=== PATIENT | female | born 1985 | race Caucasian/White ===

== ENCOUNTER 2016-11-13 17:18 | Emergency (ER) | payer OTHER ==
[2016-11-13 17:49] VITALS: BP 141/89
--- NOTE | 2016-11-13 18:11 | RADIOLOGY REPORT (SQ) ---
EXAM DESCRIPTION: WRIST LEFT 3 VIEWS COMPLETED DATE/TIME: 11/13/2016 5:57 pm REASON FOR STUDY: injury COMPARISON: None. NUMBER OF VIEWS: Three views. TECHNIQUE: AP, lateral, and oblique radiographic images acquired of the left wrist. LIMITATIONS: None. FINDINGS: MINERALIZATION: Normal. BONES: No acute fracture or dislocation. No worrisome bone lesions. Normal alignment. SOFT TISSUES: No soft tissue swelling. No foreign body. OTHER: No other significant finding. IMPRESSION: NO RADIOGRAPHIC EVIDENCE OF ACUTE INJURY. TECHNICAL DOCUMENTATION: JOB ID: [id number] [email or web address]- All Rights Reserved
--- NOTE | 2016-11-13 18:33 | ER Document Report ---
ED General - General Chief Complaint: Wrist Injury Stated Complaint: LEFT WRIST PAIN Time Seen by Provider: 11/13/16 18:27 Mode of Arrival: Ambulatory Information source: Patient Notes: 30-year-old female presents with complaints of left wrist injury. Patient fell on outstretched hand denies any other injuries - HPI Onset: Just prior to arrival Onset/Duration: Sudden Quality of pain: Achy Severity: Mild Pain Level: 1 Associated symptoms: Body/muscle aches Exacerbated by: Movement Relieved by: Denies Similar symptoms previously: No Recently seen / treated by doctor: No Past Medical History - Social History Smoking Status: Never Smoker Cigarette use (# per day): No Chew tobacco use (# tins/day): No Smoking Education Provided: No Family History: Reviewed & Not Pertinent Renal/ Medical History: Denies: Hx Peritoneal Dialysis Review of Systems - Review of Systems Notes: REVIEW OF SYSTEMS: CONSTITUTIONAL : Denies fever, chills, or sweats. Denies recent illness. EENT: Denies eye, ear, throat, or mouth pain or symptoms. Denies nasal or sinus congestion or discharge. Denies throat, tongue, or mouth swelling or difficulty swallowing. CARDIOVASCULAR: Denies chest pain. Denies palpitations or racing or irregular heart beat. Denies ankle edema. RESPIRATORY: Denies cough, cold, or chest congestion. Denies shortness of breath, difficulty breathing, or wheezing. GASTROINTESTINAL: Denies abdominal pain or distention. Denies nausea, vomiting , or diarrhea. Denies blood in vomitus, stools, or per rectum. Denies black, tarry stools. Denies constipation. GENITOURINARY: Denies difficulty urinating, painful urination, burning, frequency, blood in urine, or discharge. FEMALE GENITOURINARY: Denies vaginal bleeding, heavy or abnormal periods, irregular periods. Denies vaginal discharge or odor. MUSCULOSKELETAL: Admits to left wrist pain SKIN: Denies rash, lesions or sores. HEMATOLOGIC : Denies easy bruising or bleeding. LYMPHATIC: Denies swollen, enlarged glands. NEUROLOGICAL: Denies confusion or altered mental status. Denies passing out or loss of consciousness. Denies dizziness or lightheadedness. Denies headache. Denies weakness or paralysis or loss of use of either side. Denies problems with gait or speech. Denies sensory loss, numbness, or tingling. Denies seizures. PSYCHIATRIC: Denies anxiety or stress. Denies depression, suicidal ideation, or homicidal ideation. ALL OTHER SYSTEMS REVIEWED AND NEGATIVE. PHYSICAL EXAMINATION: GENERAL: Well-appearing, well-nourished and in no acute distress. HEAD: Atraumatic, normocephalic. EYES: Pupils equal round and reactive to light, extraocular movements intact, conjunctiva are normal. ENT: Nares patent, oropharynx clear without exudates. Moist mucous membranes. NECK: Normal range of motion, supple without lymphadenopathy LUNGS: Breath sounds clear to auscultation bilaterally and equal. No wheezes rales or rhonchi. HEART: Regular rate and rhythm without murmurs ABDOMEN: Soft, nontender, nondistended abdomen. No guarding, no rebound. No masses appreciated. Female : deferred Musculoskeletal: Limited range of motion of the left wrist secondary to pain NEUROLOGICAL: Cranial nerves grossly intact. Normal speech, normal gait. Normal sensory, motor exams PSYCH: Normal mood, normal affect. SKIN: Warm, Dry, normal turgor, no rashes or lesions noted. Dictation was performed using [employer] voice recognition software Physical Exam - Vital signs Vitals: Temp Pulse Resp BP Pulse Ox 98.1 F 102 H 18 141/89 H 100 11/13/16 17:47 11/13/16 17:47 11/13/16 17:47 11/13/16 17:47 11/13/16 17:47 Course - Re-evaluation Re-evalutation: 11/13/16 18:37 xray was negative, pt to be placed in a cockup splint velcro for comfort with ortho follow up After performing a Medical Screening Examination, I estimate there is LOW risk for INTRACRANIAL HEMORRHAGE, UNSTABLE SPINE FRACTURE, CENTRAL CORD SYNDROME, CAUDA EQUINA, THORACIC AORTIC DISSECTION, PNEUMOTHORAX, PERFORATED BOWEL, RUPTURED ABDOMINAL AORTIC ANEURYSM, ACUTE TENDON RUPTURE, COMPARTMENT SYNDROME, or OPEN FRACTURE, thus I consider the discharge disposition reasonable. Also, there is no evidence or peritonitis, sepsis, or toxicity. I have reevaluated this patient multiple times and no significant life threatening changes are noted. The patient and I have discussed the diagnosis and risks, and we agree with discharging home to follow-up with their primary doctor with the understanding that symptoms and presentations can change. We also discussed returning to the Emergency Department immediately if new or worsening symptoms occur. We have discussed the symptoms which are most concerning (e.g., bloody stool, fever, changing or worsening pain, vomiting) that necessitate immediate return. - Vital Signs Vital signs: Temp Pulse Resp BP Pulse Ox 98.1 F 102 H 18 141/89 H 100 11/13/16 17:47 11/13/16 17:47 11/13/16 17:47 11/13/16 17:47 11/13/16 17:47 - Diagnostic Test Radiology reviewed: Image reviewed, Reports reviewed - no acute abnormaltiy Procedures - Immobilization Left Wrist Time completed: 18:38 Pre-Proc Neuro Vasc Exam: Normal Immobilizer type: Cock-up Performed by: PCT Post-Proc Neuro Vasc Exam: Normal Alignment checked and good: Yes Discharge - Discharge Clinical Impression: Wrist injury Qualifiers: Encounter type: initial encounter Laterality: left Qualified Code(s): S69.92XA - Unspecified injury of left wrist, hand and finger(s), initial encounter Condition: Stable Disposition: HOME, SELF-CARE Instructions: Wrist Sprain ([facility]) Prescriptions: Hydrocodone/Acetaminophen [Thurston 5-325 mg Tablet] 1 tab PO Q6 #10 tablet Referrals: RUSS STYLES MD [ACTIVE STAFF] - Follow up tomorrow
== END 2016-11-13 18:38 | disposition home or self-care (01) ==
LOC: ER 17:18
DX: S69.92XA Unspecified injury of left wrist, hand and finger(s), initial encounter (principal); M79.1 Myalgia; W19.XXXA Unspecified fall, initial encounter
CPT/HCPCS: 99283; 73110; L3908

== ENCOUNTER 2017-03-22 05:57 | Emergency (ER) | payer OTHER ==
--- NOTE | 2017-03-22 06:19 | ER Document Report ---
ED General - General Chief Complaint: Psych Problem Stated Complaint: POSSIBLE OVERDOSE Time Seen by Provider: 03/22/17 06:07 Mode of Arrival: Medic Information source: Patient Notes: 31-year-old female history of depression presents with concerns for alcohol abuse and taking Klonopin. Patient upon arrival noted to be tachycardic, patient appears intoxicated. Patient is awake when asked why she did this she said "because" - HPI Onset: Just prior to arrival Onset/Duration: Sudden Quality of pain: No pain Severity: Mild Pain Level: Denies Associated symptoms: Other Exacerbated by: Denies Relieved by: Denies Similar symptoms previously: Yes Recently seen / treated by doctor: Yes - Related Data Allergies/Adverse Reactions: No Known Allergies Allergy (Unverified 03/22/17 06:27) Past Medical History - Social History Smoking Status: Never Smoker Cigarette use (# per day): No Chew tobacco use (# tins/day): No Smoking Education Provided: No Frequency of alcohol use: Heavy Drug Abuse: Other Family History: Reviewed & Not Pertinent Renal/ Medical History: Denies: Hx Peritoneal Dialysis Psychiatric Medical History: Reports: Hx Depression Past Surgical History: Reports: Hx Abdominal Surgery - exploratory laparoscopy, Hx Appendectomy, Hx Tonsillectomy - Immunizations Hx Diphtheria, Pertussis, Tetanus Vaccination: Yes Review of Systems - Review of Systems Notes: REVIEW OF SYSTEMS: CONSTITUTIONAL : Denies fever, chills, or sweats. Denies recent illness. EENT: Denies eye, ear, throat, or mouth pain or symptoms. Denies nasal or sinus congestion or discharge. Denies throat, tongue, or mouth swelling or difficulty swallowing. CARDIOVASCULAR: Denies chest pain. Denies palpitations or racing or irregular heart beat. Denies ankle edema. RESPIRATORY: Denies cough, cold, or chest congestion. Denies shortness of breath, difficulty breathing, or wheezing. GASTROINTESTINAL: Denies abdominal pain or distention. Denies nausea, vomiting , or diarrhea. Denies blood in vomitus, stools, or per rectum. Denies black, tarry stools. Denies constipation. GENITOURINARY: Denies difficulty urinating, painful urination, burning, frequency, blood in urine, or discharge. FEMALE GENITOURINARY: Denies vaginal bleeding, heavy or abnormal periods, irregular periods. Denies vaginal discharge or odor. MUSCULOSKELETAL: Denies back or neck pain or stiffness. Denies joint pain or swelling. SKIN: Denies rash, lesions or sores. HEMATOLOGIC : Denies easy bruising or bleeding. LYMPHATIC: Denies swollen, enlarged glands. NEUROLOGICAL: Denies confusion or altered mental status. Denies passing out or loss of consciousness. Denies dizziness or lightheadedness. Denies headache. Denies weakness or paralysis or loss of use of either side. Denies problems with gait or speech. Denies sensory loss, numbness, or tingling. Denies seizures. PSYCHIATRIC: Anxious depressed ALL OTHER SYSTEMS REVIEWED AND NEGATIVE. PHYSICAL EXAMINATION: GENERAL: Well-appearing, well-nourished and in no acute distress. HEAD: Atraumatic, normocephalic. EYES: Pupils equal round and reactive to light, extraocular movements intact, conjunctiva are normal. ENT: Nares patent, oropharynx clear without exudates. Moist mucous membranes. NECK: Normal range of motion, supple without lymphadenopathy LUNGS: Breath sounds clear to auscultation bilaterally and equal. No wheezes rales or rhonchi. HEART: Tachycardic ABDOMEN: Soft, nontender, nondistended abdomen. No guarding, no rebound. No masses appreciated. Female : deferred Musculoskeletal: Normal range of motion, no pitting or edema. No cyanosis. NEUROLOGICAL: Cranial nerves grossly intact. Normal speech, normal gait. Normal sensory, motor exams PSYCH: Intermittently tearful SKIN: Warm, Dry, normal turgor, no rashes or lesions noted. Dictation was performed using [employer] voice recognition software Physical Exam - Vital signs Vitals: Temp Resp BP Pulse Ox 98.7 F 20 138/97 H 99 03/22/17 06:01 03/22/17 06:01 03/22/17 06:01 03/22/17 06:01 Course - Re-evaluation Re-evalutation: 03/22/17 06:26 Patient's physical examination was quite benign except for tachycardia, she is obviously intoxicated, I will wait until she is sober to determine her mental and psychological status 03/22/17 15:46 Patient's heart rate improved with IV fluids, she has been medically cleared but given her presentation I do believe it is appropriate to transfer her to the [facility] for inpatient psychiatric assistance - Vital Signs Vital signs: Temp Pulse Resp BP Pulse Ox 98.7 F 155 H 13 102/68 97 03/22/17 06:01 03/22/17 06:33 03/22/17 09:01 03/22/17 09:01 03/22/17 09:01 - Laboratory Result Diagrams: 03/22/17 06:05 03/22/17 06:05 Laboratory results interpreted by me: 03/22/17 06:05 Sodium 151.7 H Chloride 113 H Carbon Dioxide 21 L Glucose 112 H Total Bilirubin 0.1 L Salicylates < 1.0 L Acetaminophen < 10 L - EKG Interpretation by Me EKG shows normal: Sinus rhythm, Holcomb, Intervals, QRS Complexes Discharge - Discharge Clinical Impression: Tachycardia Depression Qualifiers: Depression Type: unspecified Qualified Code(s): F32.9 - Major depressive disorder, single episode, unspecified Condition: Stable Disposition: [facility]
[2017-03-22 06:23] LABS: ABSOLUTE BASOPHILS # (AUTO) 0.1 10^3/uL (0.0-0.2); ABSOLUTE EOSINOPHILS # (AUTO) 0.2 10^3/uL (0.0-0.6); ABSOLUTE LYMPHOCYTES (AUTO) 2.3 10^3/uL (0.5-4.7); ABSOLUTE MONOCYTES (AUTO) 0.7 10^3/uL (0.1-1.4); ABSOLUTE NEUT (AUTO) 4.3 10^3/uL (1.7-8.2); BASOPHILS % (AUTO) 0.7 % (0-2); EOSINOPHILS % (AUTO) 3.2 % (0-6); HEMATOCRIT 41.2 % (36.0-47.0); LYMPHOCYTES % (AUTO) 30.8 % (13-45); MEAN CORPUSCULAR HEMOGLOBIN 29.1 pg (27.0-33.4); MEAN CORPUSCULAR VOLUME 86 fl (80-97); MONOCYTES % (AUTO) 8.6 % (3-13); PLATELET COUNT 284 10^3/uL (150-450); RED BLOOD COUNT 4.82 10^6/uL (3.72-5.28); RED CELL DISTRIBUTION WIDTH 13.2 % (11.5-14.0); SEGMENTED NEUTROPHILS % (AUTO) 56.7 % (42-78); TOTAL CELLS COUNTED % (AUTO) 100 %; WHITE BLOOD COUNT 7.5 10^3/uL (4.0-10.5)
[2017-03-22 06:33] LABS: APPEARANCE,URINE CLEAR; BILIRUBIN,URINE NEGATIVE (NEGATIVE); COLOR,URINE COLORLESS; GLUCOSE, URINE NEGATIVE (NEGATIVE); KETONES,URINE NEGATIVE (NEGATIVE); LEUKOCYTE ESTERASE,URINE NEGATIVE (NEGATIVE); NITRITE,URINE NEGATIVE (NEGATIVE); PROTEIN,URINE NEGATIVE (NEGATIVE); URINE SPECIFIC GRAVITY 1.002; UROBILINOGEN,URINE NEGATIVE mg/dL (<2.0)
[2017-03-22] MEDS ORDERED: NORMAL SALINE 1000 ML 1,000 ML IV PRN (06:34)
[2017-03-22 06:42] LABS: ALANINE AMINOTRANSFERASE 24 U/L (9-52); ALBUMIN 4.7 g/dL (3.5-5.0); ALCOHOL 227 mg/dL (NONE DETECTED); ALKALINE PHOSPHATASE 122 U/L (38-126); ANION GAP 18 (5-19); ASPARTATE AMINO TRANSFERASE 15 U/L (14-36); BILIRUBIN,DIRECT 0.1 mg/dL (0.0-0.4); BILIRUBIN,TOTAL 0.1 mg/dL (0.2-1.3); BLOOD UREA NITROGEN 11 mg/dL (7-20); CALCIUM 9.8 mg/dL (8.4-10.2); CARBON DIOXIDE 21 mmol/L (22-30); CHLORIDE 113 mmol/L (98-107); GLUCOSE 112 mg/dL (75-110); POTASSIUM 4.2 mmol/L (3.6-5.0); SODIUM 151.7 mmol/L (137-145); TOTAL PROTEIN 7.6 g/dL (6.3-8.2)
[2017-03-22 06:44] LABS: URINE AMPHETAMINES SCREEN NEGATIVE; URINE BARBITURATES SCREEN NEGATIVE; URINE BENZODIAZEPINES SCREEN NEGATIVE; URINE COCAINE SCREEN NEGATIVE; URINE MARIJUANA (THC) SCREEN NEGATIVE; URINE METHADONE SCREEN NEGATIVE; URINE PHENCYCLIDINE SCREEN NEGATIVE
[2017-03-22 06:48] LABS: ACETAMINOPHEN < 10 ug/mL (10-30); SALICYLATE < 1.0 mg/dL (2.0-20.0)
[2017-03-22 07:11] LABS: CREATINE KINASE MB < 0.22 ng/mL (<4.55); TROPONIN I < 0.012 ng/mL
--- NOTE | 2017-03-22 08:59 | EKG REPORT ---
SEVERITY:- BORDERLINE ECG - SINUS TACHYCARDIA BORDERLINE T ABNORMALITIES, INFERIOR LEADS : Confirmed by: Alex Li 22-Mar-2017 08:58:17
--- NOTE | 2017-03-22 10:18 | PSYCHOLOGICAL NOTE ---
Psych Note - Psych Note Psych Note: Reason for Consult: Overdose (ETOH/Klonopin) Consents given: Patience, previous landlord/friend, Patient is a 31 year old female who presented to the Emergency Department via EMS after reportedly drinking two bottles of wine, multiple beers and taking 5 1 /2 Klonopin. Patient stated she called the suicide hotline because she wanted to commit suicide and the suicide hotline called EMS. She stated she felt like they made her come into the hospital versus it being her choice to be here. Patient reported she had a "bad night. I was tired." Patient reported, "I drank and I took some pills. I tried to commit suicide. Now I'm better." Patient reported she recently had a "falling out: with her mother who is a "psycho bitch." Patient stated she was a "psycho bitch too, like mother like daughter." Patient stated she does not know if her mother has any mental health diagnoses but stated she currently has breast cancer. Patient reported her biological father was diagnosed with Bipolar Disorder but she does not have contact with him. Patient reported she goes to the [facility] for therapy, physical health complaints and medication management. Patient stated she has been diagnosed with depression, anxiety and chronic low back pain. Her medications include Gabapentin, Klonopin and Naproxen. Patient reported being previously prescribed Prozac but no current medications to address depression. Patient reported she feels like she does not suffer with depression anymore, stated she has not experienced any depressive episodes since her son was approximately 6 months old, he is 2 years old now. Patient stated her son's biological father is not in the child's life, does not contribute child support and is not listed on his certificate. Patient stated her "biggest issue is anxiety." Patient reported her son was home sleeping when she started drinking and took the pills. She stated she called her previous landlord/friend , Shilpi, to come get her son when she started feeling suicidal but after she had already been drinking. Patient stated her son is "all that matters." She reported that "usually being with my kid is all that matters, last night it just got away from me." Patient reported she was in the [employer] for 5 1/2 years and got out on 04/03/2012. 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 Patient reported she came back [facility] to have an . She stated the was botched and they did not clear all of the tissue from her uterus so she had to have multiple procedures to correct the initial which caused extensive scar tissue to her uterus. She reported following the surgeries she attempted suicide and was psychiatrically hospitalized in [facility]. Patient reported she has not attempted suicide since that time. Patient did report she had "an old [employer] caron" commit suicide in September 2016. Patient reported she is working on her Bachelor's Degree in [employer] Education through [facility] [employer] and it is being paid for by her [employer]. Patient stated her current class is more extensive and harder than previous classes but she is still maintaining her grades. She stated the class was more stressful than past classes. She indicated she still has "a long while" until she completes her degree but is not concerned because she is utilizing her [employer] Bill. Patient denied any consistent drug or alcohol use. She stated her alcohol use is "slim to none" and denied taking any medications not prescribed to her. It should be noted the patient's alcohol serum level upon admission to the Emergency Department was 222. Patient made multiple statements about hospital staff not "giving a fuck" because they had not been in to check on her or the monitor in her room. Collateral information was obtained from Deputy Longoria who responded to the patient's home. He reported seeing two empty wine bottles and multiple empty beer cans on the patient's counter when he entered the home. He reported the patient told him he should "take my pills," referring to her Klonopin, when he was looking for her identification. When he asked her why he should take them she told him it was because she was going to take them. Murphy indicated he has not had prior interaction with the patient but he was also aware she had recently moved to her current residence from [place] so she would not have been in his patrol area. The deputy reported the patient collapsed without force on the front porch and he assisted her into a chair. He stated when she was in the chair he observed her eyelids fluttering and her eyes rolling. The deputy stated the patient never told him why she was attempting to commit suicide or what stressors she was currently experiencing. Verbal consent was given to speak to Patience, the patient's previous landlord/ friend. Patience reported she has known the patient for roughly 2.5 years. Patience reported she hasn't seen the patient in the last 2 weeks and in the last year they only see each other "every once in a while." They communicate mostly via Facebook. The patient's son is with the landlord at this time. When asked questions regarding safety and concern for her son, Patience said, "I can't comment on it because I hasn't seen her in a while." Patience reported when they used to see each other every day she never had concerns for the patient's son and she never saw the patient under the influence while watching her son. Patience reported she does not know about an increase in the patient's drug or alcohol use. Patience reported the patient has a brother and a [id number] in [place] and she has the contact numbers for those family members. [facility] was contacted and a report was made to Julia Juarez regarding the minor child being in the home during the reported overdose. When the material requisitioner discussed involuntary commitment and placement for psychiatric stabilization the patient became tearful and angry and stated "that is not going to happen." This material requisitioner attempted to explain the reasons and needs for inpatient services and having to make a CPS report regarding her son. This material requisitioner asked about family in the area since the landlord/friend had reported that the patient has a brother and sister in law in [place]. The patient stated she did not want her son to go to those family members during her inpatient stay. This material requisitioner asked if there were safety issues with the son staying with her brother and sister in law and she stated "no, I just don't want him to go there." Patient then asked to speak to the doctor about the treatment plan. This material requisitioner informed the doctor of the patient's request to speak to him. Patient was alert and oriented to person, place, time and circumstance. Mood was guarded and hostile with congruent affect. Patient denied suicidal/ homicidal ideation, intent or plan. When asked what the difference was in the last few hours from her attempting to commit suicide and now the patient stated she "was better." Patient was unable to identify any changes in support, decreased stressors or increased coping methods. She did not appear to be responding to internal stimuli as evidenced by appropriate eye contact, maintaining conversation and staying on topic. No delusions or psychosis noted. Thought processes were organized and linear. Conversational speech was within normal limits for rate, tone and prosody. Intellectual abilities were estimated in the average range. Attention and concentration were fair. Insight, judgment and impulse control were poor as evidenced by the patient minimizing suicidal behaviors and precipitating events. 1. 300.00 (F41.9) Unspecified Anxiety Disorder, by patient report 2. 311 (F32.9) Unspecified Depressive Disorder, by patient report Impression/Plan: Recommend IVC. Patient is not psychiatrically clear. She meets [place] G.S 122C IVC criteria as evidenced by minimization of suicidal behaviors, unwillingness to identify behavioral triggers, and guarded interaction with evaluators. She evidences little insight, poor impulse control and poor judgment. She is considered a danger to herself and others at this time. Placement at an inpatient hospitalization will be sought. Consulted with Dr. Meza regarding the care and management of this patient. ED physician in agreement with recommendation and disposition.
[2017-03-22] MEDS: FLUOXETINE HCL 20 MG CAPSULE PO SCH (10:19)
[2017-03-22] MEDS: OLANZAPINE 2.5 MG TABLET PO SCH ×2 (10:19→18:07)
[2017-03-23] MEDS: OLANZAPINE 2.5 MG TABLET PO SCH ×2 (09:21→19:45)
[2017-03-23] MEDS: FLUOXETINE HCL 20 MG CAPSULE PO SCH (09:22)
--- NOTE | 2017-03-23 10:41 | ER Document Report ---
Doctor's Note Notes: 03/23/17 10:39 This is a 31-year-old female brought in with suicidal ideations. She has had 2 suicide attempts in the past. She is hemodynamically stable in no acute distress at this time and wanting to go home. There is concern about her safety given her history. For this reason, the plan will be to maintain involuntary commitment for inpatient psychiatric care. I have discussed the case with the psychology team who have evaluated the patient.
[2017-03-24 07:23] VITALS: BP 108/64
--- NOTE | 2017-03-24 07:41 | PSYCHOLOGICAL NOTE ---
Psych Note - Psych Note Psych Note: Communication Technician contacted by POD 4 nurse. Patient received a call from her sister-in- law stating she ([id number]) would not be caring for patient's son while she is in the hospital. Communication Technician checked in with patient. Patient was visibly upset and tearful. She reported her [id number] called her and told her she didn't want CPS involved with their family, even if it was peripherally through her son. Patient stated the [id number] refused to take her son while she was in the hospital and she was distraught. Patient asked if she could complete a temporary medical POA for the lady, Patience, who is currently watching her son. This cylinder dyer asked if she (Patience) had agreed to continue to care for the patient's son for the entirety of the patient's inpatient stay. Patient stated she had called and asked her right after her [id number] refused and said she would keep the child. Provided the temporary POA to the patient and had it notarized by the caseworker. Made a copy of the notarized POA and put both copies on the patient's chart. Informed the patient and POD 4 staff that the rough and trueing machine operator (Patience) would need to pickling tank operator the original of the POA. Informed nursing staff the copy needed to be kept as part of the patient's chart. Patient expressed gratitude and was very thankful for this cylinder dyer's assistance. Patient appears more willing and interested in inpatient treatment at this time.
--- NOTE | 2017-03-24 08:26 | PSYCHOLOGICAL NOTE ---
Psych Note - Psych Note Psych Note: Reason for Consult: Overdose (ETOH/Klonopin) Consents given: Patience, previous landlord/friend, Chart review/check in: Per [facility] staff, patient rested comfortably throughout the night. Patient lying in bed, awake, when this shot dropper entered the room. Patient's breakfast at bedside, uneaten. Patient stated she was doing "okay." Informed patient we are waiting to hear from [facility] about placement. Patient appeared calm and interacted appropriately. Patient was alert and oriented to person, place, time and circumstance. Mood was subdued with congruent affect. Patient denied suicidal/homicidal ideation, intent or plan. Patient did not appear to be responding to internal stimuli as evidenced by appropriate eye contact, maintaining conversation and staying on topic. No delusions or psychosis noted. Thought processes were organized and linear. Conversational speech was within normal limits for rate, tone and prosody. Intellectual abilities were estimated in the average range. Attention and concentration were fair. Insight, judgment and impulse control continue to be poor. Patient still somewhat guarded in what she is willing to discuss and continues to need stabilization through inpatient treatment. 1. 300.00 (F41.9) Unspecified Anxiety Disorder, by patient report 2. 311 (F32.9) Unspecified Depressive Disorder, by patient report Impression/Plan: Recommend continue IVC. Patient is not psychiatrically clear. She meets [place] G.S 122C IVC criteria as evidenced by minimization of suicidal behaviors, unwillingness to identify behavioral triggers, and guarded interaction with evaluators. She evidences little insight, poor impulse control and poor judgment. She is considered a danger to herself and others at this time. Placement at an inpatient hospitalization is being sought. As patient has VA benefits her inpatient packet has been sent to the [facility] [place]. power manager will be following up today to identify any open beds and ensure packet is being reviewed by the hospitals. Consulted with Dr. Meza regarding the care and management of this patient. ED physician in agreement with recommendation and disposition.
[2017-03-24] MEDS: FLUOXETINE HCL 20 MG CAPSULE PO SCH (09:55)
[2017-03-24] MEDS: OLANZAPINE 2.5 MG TABLET PO SCH (09:55)
--- NOTE | 2017-03-24 10:01 | ER Document Report ---
Doctor's Note Notes: 03/24/17 10:05 Patient continues to be tearful and suicidal, willing to go to inpatient treatment as behavioral health thinks this is necessary. [facility] has been contacted and we are waiting a phone call back for placement. Patient does have some redness and swelling in her left antecubital fossa where her IV was placed. This appears to be superficial thrombophlebitis from the IV. Heating pad will be placed. Patient also complains of her chronic back pain which is unchanged from baseline. Patient will be given acetaminophen.
[2017-03-24] MEDS ORDERED: ACETAMINOPHEN 325 MG TABLET PO ONE (10:07)
== END 2017-03-24 13:08 ==
LOC: ER 05:57
DX: F32.9 Major depressive disorder, single episode, unspecified (principal); R00.0 Tachycardia, unspecified; Z79.899 Other long term (current) drug therapy
CPT/HCPCS: 93005; 99285; 36415; 82553; 80307 ×4; 82550; 83735; 84703; 85025; 80053; 81001; 84484; 93010; J3490 ×3

== ENCOUNTER 2017-12-12 15:13 | Emergency (ER) | payer OTHER ==
[2017-12-12 15:22] VITALS: BP 150/97
[2017-12-12] MEDS ORDERED: OXYCODONE-ACETAMINOPHEN 5-325 MG TABLET PO ONE (16:46)
[2017-12-12] MEDS ORDERED: DEXAMETHASONE SOD PHOS INJ 10 MG/1 ML VIAL IM ONE (16:46)
[2017-12-12] MEDS ORDERED: LIDOCAINE 5% (700 MG) TRANSDERMAL ADH..PATCH TP ONE (16:46)
[2017-12-12] MEDS ORDERED: BACLOFEN 20 MG TABLET PO ONE (16:47)
[2017-12-12] MEDS ORDERED: KETOROLAC TROMETHAMINE 60 MG/2 ML SDV IM ONE (16:47)
--- NOTE | 2017-12-12 17:03 | ER Document Report ---
HPI - HPI Pain Level: 4 Notes: Patient is a 32-year-old female who presents with chief complaint of low back pain. Patient reports she has a history of chronic back pain. She states that a few months ago her son broke his leg, he is 2 years old and she has been carrying him all over the place. She reports her back pain has gotten worse she is having numbness and tingling going down into the left leg. Patient reports she has had a previous MRI and she has a bulging disc at L5-S1. States she is in pain management and is seen by [facility]. Patient denies loss of any bowel or bladder, denies any saddle anesthesia. Urinating without any difficulty. Denies any fevers. - CONSTITUTIONAL Constitutional: DENIES: Fever, Chills - EENT EENT: DENIES: Sore Throat, Ear Pain, Eye problems - NEURO Neurology: DENIES: Headache, Weakness, Vision blurred, Dizzinesss / Vertigo - CARDIOVASCULAR Cardiovascular: DENIES: Chest pain - RESPIRATORY Respiratory: DENIES: Trouble Breathing, Coughing - GASTROINTESTINAL Gastrointestinal: DENIES: Abdominal Pain, Black / Bloody Stools - URINARY Urinary: DENIES: Dysuria, Urgency, Frequency - MUSCULOSKELETAL Musculoskeletal: DENIES: Extremity pain Past Medical History - General Information source: Patient - Social History Smoking Status: Current Some Day Smoker Chew tobacco use (# tins/day): No Frequency of alcohol use: Occasional Drug Abuse: None Family History: Reviewed & Not Pertinent Patient has suicidal ideation: No Patient has homicidal ideation: No Renal/ Medical History: Denies: Hx Peritoneal Dialysis Psychiatric Medical History: Reports: Hx Depression Past Surgical History: Reports: Hx Abdominal Surgery - exploratory laparoscopy, Hx Appendectomy, Hx Tonsillectomy - Immunizations Hx Diphtheria, Pertussis, Tetanus Vaccination: Yes Vertical Provider Document - CONSTITUTIONAL Notes: PHYSICAL EXAMINATION: GENERAL: Well-appearing, well-nourished and in no acute distress. HEAD: Atraumatic, normocephalic. EYES: Pupils equal round extraocular movements intact, conjunctiva are normal. ENT: Nares patent NECK: Normal range of motion LUNGS: No respiratory distress Musculoskeletal: Normal range of motion, tenderness to palpation to left paraspinous area, left lumbar spine. Normal sensation to both lower extremities. Normal pulses, cap refill less than 3 seconds. NEUROLOGICAL: Normal speech, normal gait. PSYCH: Normal mood, normal affect. SKIN: Warm, Dry, normal turgor, no rashes or lesions noted. - INFECTION CONTROL TRAVEL OUTSIDE OF THE [place] IN LAST 30 DAYS: No Course - Re-evaluation Re-evalutation: Patient with likely exacerbation of chronic low back pain. No imaging indicated at this time. Patient given IM Decadron, IM Toradol, Lidoderm patch, p.o. baclofen and p.o. oxycodone x1. Patient will be discharged home in stable condition. Highly encouraged patient to follow-up with her primary care provider next week for follow-up. Encouraged patient not to lift more than 5 pounds. - Vital Signs Vital signs: Temp Pulse Resp BP Pulse Ox 98.3 F 96 150/97 H 98 12/12/17 15:20 12/12/17 15:20 12/12/17 15:20 12/12/17 15:20 Discharge - Discharge Clinical Impression: Low back pain Qualifiers: Chronicity: acute Back pain laterality: left Sciatica presence: with sciatica Sciatica laterality: sciatica of left side Qualified Code(s): M54.42 - Lumbago with sciatica, left side Condition: Stable Disposition: HOME, SELF-CARE Additional Instructions: LOW BACK PAIN: Three out of every four people will have an episode of disabling back pain during their lifetime. Most commonly the pain is due to straining of the muscles and ligaments in the low back. Usual treatment includes: (1) Rest on a firm surface. Avoid lying on your stomach. (2) Ice pack the painful area. After a few days, gentle heat may be used intermittently to relax the area, or ice packs can be continued. (3) Medication may be needed -- muscle relaxers and antiinflammatory medicines are commonly used. (4) As the back improves, exercises are prescribed to strengthen the back and abdominal muscles. Your doctor will advise you on the proper care for your back at each stage in your recovery. You may be better in a few days -- or healing may take several weeks. If new symptoms of a "herniated disc" (radiation of pain, numbness, or tingling down the back of the leg or weakness in the leg) occur, you should be re-examined. Further testing may be necessary. MUSCLE RELAXERS: Muscle relaxing medications are usually prescribed for acute muscle spasm or injury to the neck and back. They are often combined with antiinflammatory pain medication for increased relief. You may stop the muscle relaxer when the pain and stiffness have improved. Start the medication again if spasms recur. Muscle relaxers may cause drowsiness, especially with the first dose. Do not operate machinery or drive while under the effects of the medication. Most muscle relaxers last up to 24 hours. Do not combine the medication with alcohol. ICE PACKS: Apply ice packs frequently against the painful area. Many different schedules are recommended, such as "20 minutes on, 20 minutes off" or "one hour ice, two hours rest." If you need to work, you may need to go longer between ice treatments. You should plan to have the area ice packed AT LEAST one fourth of the time. The ice should be applied over the wrap, tape, or splint, or over a layer of cloth -- not directly against the skin. Some ice bags have a built-in cloth and can be put directly on the skin. WARM PACKS: After approximately two days, apply gentle heat (such as a heating pad or hot water bottle) for about 20 to 30 minutes about every two hours -- at least four times daily. Warmth and elevation will help you make a more rapid recovery , and will ease the pain considerably. Do not use HOT heat, and never apply heat for longer than 30 minutes. The continuous heat can invisibly damage skin and muscles -- even when no burn is seen on the surface. Damaged muscles can make you MORE sore. FOLLOW-UP CARE: If you have been referred to a physician for follow-up care, call the physician s office for an appointment as you were instructed or within the next two days. If you experience worsening or a significant change in your symptoms, notify the physician immediately or return to the Emergency Department at any time for re-evaluation. Please take medications as prescribed. Apply the Lidoderm patch to whatever area is of most intensity of pain. Use the muscle relaxer as prescribed. Take ibuprofen 600 mg every 6 hours this will help with not only the pain but also the inflammation. As we discussed please follow-up with your primary care provider at [facility], they may want to see you perhaps to do another MRI to make sure that you have not worsened the bulging disc that you were already diagnosed with. No lifting greater than 5 pounds for the next week. Return to the emergency department if you defecate on herself, you are unable to urinate at all or you develop a fever. Prescriptions: Baclofen [Baclofen 10 mg Tablet] 10 mg PO TID #15 tablet Lidocaine [Lidoderm 5% (700 mg) Transdermal Patch] 1 patch TP DAILY #30 adh..patch
== END 2017-12-12 17:11 | disposition home or self-care (01) ==
LOC: ER 15:13
DX: M54.42 Lumbago with sciatica, left side (principal); R20.0 Anesthesia of skin; R20.2 Paresthesia of skin; F17.200 Nicotine dependence, unspecified, uncomplicated
CPT/HCPCS: 99283; 96372; J1885; J3490; J1100

== ENCOUNTER 2017-12-14 16:36 | Emergency (ER) | payer OTHER ==
[2017-12-14] MEDS ORDERED: KETOROLAC TROMETHAMINE 60 MG/2 ML SDV IM ONE (17:21)
[2017-12-14] MEDS ORDERED: FENTANYL CITRATE INJ/PF 100 MCG/2 ML AMPUL IM ONE (17:23)
--- NOTE | 2017-12-14 17:27 | ER Document Report ---
ED Medical Screen (RME) - General Chief Complaint: Low Back Pain Stated Complaint: BACK PAIN Time Seen by Provider: 12/14/17 17:16 Mode of Arrival: Wheelchair Notes: 32-year-old female with a history of chronic back pain presents emergency department complaints of worsening low back pain. Patient states that her son broke his leg a few months ago and she has been carrying him all over the place. She states that this is aggravating her back. She states that it is worsening. She complains of a sharp and stabbing sensation in the left lower back that radiates down the left lower extremity. Patient states that she has had an MRI in the past that showed disc bulging at L5/S1. She is seen in pain management by the [place] [facility]. Patient is currently on gabapentin and naproxen. Patient was seen in the emergency department 2 days ago for worsening lower back pain. She was prescribed a Lidoderm patch, baclofen. Patient states that she [facility] the [facility] but it takes a few days for them to approve them and for her to start using them. Patient states that she is having some difficulty urinating now. Patient is able to ambulate despite the pain. She denies any saddle anesthesia. I have greeted and performed a rapid initial assessment of this patient. A comprehensive ED assessment and evaluation of the patient, analysis of test results and completion of the medical decision making process will be conducted by additional ED providers. PHYSICAL EXAMINATION: GENERAL: Well-appearing, well-nourished and in no acute distress. HEAD: Atraumatic, normocephalic. EYES: Pupils equal round extraocular movements intact, conjunctiva are normal. ENT: Nares patent NECK: Normal range of motion LUNGS: No respiratory distress Musculoskeletal: Normal range of motion NEUROLOGICAL: Normal speech, limping gait. PSYCH: Normal mood, normal affect. SKIN: Warm, Dry, normal turgor, no rashes or lesions noted. TRAVEL OUTSIDE OF THE U.S[place] IN LAST 30 DAYS: No - Related Data Allergies/Adverse Reactions: No Known Allergies Allergy (Unverified 03/22/17 06:27) Past Medical History - Social History Frequency of alcohol use: None Drug Abuse: None Renal/ Medical History: Denies: Hx Peritoneal Dialysis Psychiatric Medical History: Reports: Hx Depression - anxiety Past Surgical History: Reports: Hx Abdominal Surgery - exploratory laparoscopy, Hx Appendectomy, Hx Tonsillectomy - Immunizations Hx Diphtheria, Pertussis, Tetanus Vaccination: Yes History of Influenza Vaccine for 11/2016 - 04/2017 Season: Yes Influenza Administration Date for 11/2016 - 04/2017 Season: 11/09/16 Physical Exam - Vital signs Vitals: Temp Pulse Resp BP Pulse Ox 98.8 F 111 H 18 152/111 H 99 12/14/17 16:41 12/14/17 16:41 12/14/17 16:41 12/14/17 16:41 12/14/17 16:41 Course - Vital Signs Vital signs: Temp Pulse Resp BP Pulse Ox 98.8 F 111 H 18 152/111 H 99 12/14/17 16:41 12/14/17 16:41 12/14/17 16:41 12/14/17 16:41 12/14/17 16:41
[2017-12-14 19:10] LABS: APPEARANCE,URINE CLEAR; BILIRUBIN,URINE NEGATIVE (NEGATIVE); COLOR,URINE STRAW; GLUCOSE, URINE NEGATIVE (NEGATIVE); KETONES,URINE TRACE mg/dL (NEGATIVE); LEUKOCYTE ESTERASE,URINE NEGATIVE (NEGATIVE); NITRITE,URINE NEGATIVE (NEGATIVE); PROTEIN,URINE NEGATIVE (NEGATIVE); URINE SPECIFIC GRAVITY 1.014; UROBILINOGEN,URINE NEGATIVE mg/dL (<2.0)
[2017-12-14] MEDS ORDERED: PREDNISONE 20 MG TABLET PO ONE (20:01)
[2017-12-14] MEDS ORDERED: TRAMADOL HCL 50 MG TABLET PO ONE (20:01)
--- NOTE | 2017-12-14 20:08 | ER Document Report ---
ED General - General Chief Complaint: Low Back Pain Stated Complaint: BACK PAIN Time Seen by Provider: 12/14/17 17:16 Mode of Arrival: Wheelchair TRAVEL OUTSIDE OF THE [place].S[place] IN LAST 30 DAYS: No - HPI Patient complains to provider of: Left sided back pain Notes: Patient was seen in the triage area by triage provider note is provided below 32-year-old female with a history of chronic back pain presents emergency department complaints of worsening low back pain. Patient states that her son broke his leg a few months ago and she has been carrying him all over the place. She states that this is aggravating her back. She states that it is worsening. She complains of a sharp and stabbing sensation in the left lower back that radiates down the left lower extremity. Patient states that she has had an MRI in the past that showed disc bulging at L5/S1. She is seen in pain management by the [facility]. Patient is currently on gabapentin and naproxen. Patient was seen in the emergency department 2 days ago for worsening lower back pain. She was prescribed a Lidoderm patch, baclofen. Patient states that she submitted the prescriptions for [facility] but it takes a few days for them to approve them and for her to start using them. Patient states that she is having some difficulty urinating now. Patient is able to ambulate despite the pain. She denies any saddle anesthesia. Patient does agree with above statements. Patient states that some of this is coming from carrying her 2-year around patient states pain does go down the back of her leg. Patient denies any difficulty in walking denies any bowel or bladder incontinence. Denies any fevers chills - Related Data Allergies/Adverse Reactions: No Known Allergies Allergy (Unverified 03/22/17 06:27) Past Medical History - Social History Smoking Status: Current Some Day Smoker Frequency of alcohol use: None Drug Abuse: None Family History: Reviewed & Not Pertinent Patient has suicidal ideation: No Patient has homicidal ideation: No Renal/ Medical History: Denies: Hx Peritoneal Dialysis Psychiatric Medical History: Reports: Hx Depression - anxiety Past Surgical History: Reports: Hx Abdominal Surgery - exploratory laparoscopy, Hx Appendectomy, Hx Tonsillectomy - Immunizations Hx Diphtheria, Pertussis, Tetanus Vaccination: Yes Review of Systems - Review of Systems Constitutional: No symptoms reported EENT: No symptoms reported Cardiovascular: No symptoms reported Respiratory: No symptoms reported Gastrointestinal: No symptoms reported Genitourinary: No symptoms reported Female Genitourinary: No symptoms reported Musculoskeletal: Back pain Skin: No symptoms reported Hematologic/Lymphatic: No symptoms reported Neurological/Psychological: No symptoms reported -: Yes All other systems reviewed and negative Physical Exam - Vital signs Vitals: Temp Pulse Resp BP Pulse Ox 98.8 F 111 H 18 152/111 H 99 12/14/17 16:41 12/14/17 16:41 12/14/17 16:41 12/14/17 16:41 12/14/17 16:41 Interpretation: Normal - General General appearance: Appears well, Alert - HEENT Head: Normocephalic, Atraumatic Eyes: Normal Pupils: PERRL - Respiratory Respiratory status: No respiratory distress Chest status: Nontender Breath sounds: Normal Chest palpation: Normal - Cardiovascular Rhythm: Regular Heart sounds: Normal auscultation Murmur: No - Abdominal Inspection: Normal Distension: No distension Bowel sounds: Normal Tenderness: Nontender Organomegaly: No organomegaly - Back Back: Normal, Tender - Tenderness to palpation of the paraspinal muscles on the left side with reproduction of the shooting pain down the leg to palpation of the piriformis muscle. - Extremities General upper extremity: Normal inspection, Nontender, Normal color, Normal ROM , Normal temperature General lower extremity: Normal inspection, Nontender, Normal color, Normal ROM , Normal temperature, Normal weight bearing. No: Brenden's sign - Neurological Neuro grossly intact: Yes Cognition: Normal Orientation: AAOx4 Jass Coma Scale Eye Opening: Spontaneous Jass Coma Scale Verbal: Oriented [place] Coma Scale Motor: Obeys Commands Jass Coma Scale Total: 15 Speech: Normal Motor strength normal: LUE, RUE, LLE, RLE Sensory: Normal Knee - Reflex grade: 2 = Normal - Psychological Associated symptoms: Normal affect, Normal mood - Skin Skin Temperature: Warm Skin Moisture: Dry Skin Color: Normal Course - Re-evaluation Re-evalutation: 12/15/17 00:42 The patient presents with low back pain without signs of spinal cord compression , cauda equina syndrome, infection, aneurysm, or other serious etiology. The patient is neurologically intact. Given the extremely low risk of these diagnoses further testing and evaluation for these possibilities does not appear to be indicated at this time. The patient has been instructed to return if the symptoms worsen or change in any way. Patient agrees with steroids and Ultram treatment patient was encouraged not to take the baclofen and Ultram together. Also continue with ice therapy heat therapy and Tylenol Motrin - Vital Signs Vital signs: Temp Pulse Resp BP Pulse Ox 98.8 F 86 16 122/84 100 12/14/17 16:41 12/14/17 20:11 12/14/17 20:11 12/14/17 20:11 12/14/17 20:11 - Laboratory Laboratory results interpreted by me: 12/14/17 17:52 Urine Ketones TRACE H Discharge - Discharge Clinical Impression: Low back pain Qualifiers: Chronicity: acute Back pain laterality: left Sciatica presence: with sciatica Sciatica laterality: sciatica of left side Qualified Code(s): M54.42 - Lumbago with sciatica, left side Condition: Good Disposition: HOME, SELF-CARE Instructions: Ice Packs ([facility]), Low Back Pain ([facility]), Oral Narcotic Medication ( [facility]), Sciatica ([facility]), Warm Packs ([facility]) Additional Instructions: Your evaluation is consistent with left-sided sciatica. I would highly recommend that she use warm packs ice packs Tylenol Motrin therapy for your pain control. Ultram for severe pain. Please take the prednisone as prescribed. Follow-up with your primary care physician return to ER symptoms worsen. I highly recommend she undergo piriformis stretching exercises. You may look this up on the Internet for further videos. Prescriptions: Ibuprofen [Motrin 600 mg Tablet] 600 mg PO Q8HP PRN #21 tablet PRN Reason: Prednisone [Deltasone] 60 mg PO DAILY #24 tablet Tramadol HCl [Ultram 50 mg Tablet] 50 mg PO ASDIR PRN #14 tablet PRN Reason:
[2017-12-14 20:13] VITALS: BP 122/84
== END 2017-12-14 20:38 | disposition home or self-care (01) ==
LOC: ER 16:36
DX: M54.42 Lumbago with sciatica, left side (principal); M79.605 Pain in left leg; F17.200 Nicotine dependence, unspecified, uncomplicated
CPT/HCPCS: 99283; 96372; 81025; 81001; J3010; J7512

== ENCOUNTER 2018-05-22 11:46 | Emergency (ER) | payer OTHER ==
[2018-05-22 11:56] VITALS: BP 144/89
[2018-05-22] MEDS ORDERED: KETOROLAC TROMETHAMINE 60 MG/2 ML SDV IM ONE (12:56)
[2018-05-22] MEDS ORDERED: LIDOCAINE 5% (700 MG) TRANSDERMAL ADH..PATCH TP ONE (12:56)
--- NOTE | 2018-05-22 12:58 | ER Document Report ---
HPI - HPI Time Seen by Provider: 05/22/18 12:15 Pain Level: 5 Context: Patient is a 32-year-old female with chronic back pain who presents emergency department with a complaint of right low back pain. She states that her pain radiates down her left leg. She took some Tylenol at 10:00 this morning and has had only a little relief. She is an appointment to see neurosurgery on the of this month. She states that she turned a certain way and felt her back pain got worse. Denies any history of IV drug abuse, loss of bladder or bowel function. She is able to walk. - CONSTITUTIONAL Constitutional: DENIES: Fever, Chills - EENT EENT: DENIES: Sore Throat - NEURO Neurology: DENIES: Headache - CARDIOVASCULAR Cardiovascular: DENIES: Chest pain - RESPIRATORY Respiratory: DENIES: Coughing - URINARY Urinary: DENIES: Dysuria, Urgency - REPRODUCTIVE Reproductive: DENIES: : - MUSCULOSKELETAL Musculoskeletal: REPORTS: Back Pain - Left low back, with sciatica - DERM Skin Color: Normal, Mottled Past Medical History - Social History Smoking Status: Current Every Day Smoker Frequency of alcohol use: None Drug Abuse: None Family History: Reviewed & Not Pertinent Patient has suicidal ideation: No Patient has homicidal ideation: No Renal/ Medical History: Denies: Hx Peritoneal Dialysis Psychiatric Medical History: Reports: Hx Depression - anxiety Past Surgical History: Reports: Hx Abdominal Surgery - exploratory laparoscopy, Hx Appendectomy, Hx Tonsillectomy - Immunizations Hx Diphtheria, Pertussis, Tetanus Vaccination: Yes Vertical Provider Document - CONSTITUTIONAL Agree With Documented VS: Yes Exam Limitations: No Limitations General Appearance: No Apparent Distress - INFECTION CONTROL TRAVEL OUTSIDE OF THE [place] IN LAST 30 DAYS: No - HEENT HEENT: Atraumatic, Normocephalic - NECK Neck: Normal Inspection - RESPIRATORY Respiratory: No Respiratory Distress - CARDIOVASCULAR Cardiovascular: Regular Rate, Regular Rhythm Pulses: Normal: Radial, Posterior tibial, Dorsalis pedis - BACK Back: Normal Inspection - MUSCULOSKELETAL/EXTREMETIES Musculoskeletal/Extremeties: FROM, Tender - Right low back - NEURO Level of Consciousness: Awake, Alert, Appropriate Motor/Sensory: No Motor Deficit, No Sensory Deficit, No Pronator Drift Deep Tendon Reflexes: 2+ - DERM Integumentary: Warm, Dry Course - Re-evaluation Re-evalutation: 04/13/19 12:58 Differential diagnosis for back pain includes muscle spasm, muscle strain, slipped disc cauda equina syndrome, vertebral fracture, vertebral tumor, epidural abscess, pyelonephritis, or AAA. Based on history and exam, the most likely etiology of the patient's back pain is chronic sciatic nerve pain. Emergent MRI is not indicated at this time because the patient does not have new weakness, or cauda equina syndrome. Patient does not have bladder or bowel dysfunction. Patient does not have history of IV drug use, therefore, I do not suspect an epidural abscess. Patient does not have recent weight loss or night sweats, and does not have a known history of cancer. She will be provided lidocaine patches. She will follow-up with her neurosurgeon. Verbal discharge instructions were given to the patient. They verbalized understanding. They are stable for discharge. - Vital Signs Vital signs: Temp Pulse Resp BP Pulse Ox 98.7 F 109 H 16 144/89 H 99 05/22/18 11:55 05/22/18 11:55 05/22/18 11:55 05/22/18 11:55 05/22/18 11:55 Discharge - Discharge Clinical Impression: Left sciatic nerve pain Condition: Stable Disposition: HOME, SELF-CARE Instructions: Ice Packs ([facility]), Low Back Pain ([facility]), Warm Packs ([facility]) Additional Instructions: You were seen today in the emergency department for back pain. Your back pain is most consistent with sciatic nerve pain. You may take ibuprofen 600 mg and acetaminophen 1000 mg every 6 hours as needed for the pain. You have been prescribed lidocaine patches. Use as directed. If you cannot use the lidocaine patches, you may also buy [id number] Aspercreme with lidocaine and apply to the area per box instructions. If you develop a fever greater than 100.4 F, lose bowel or bladder function, are unable to walk, or have any symptoms that are worrisome to you, please return to the emergency department.. Prescriptions: Lidocaine [Lidoderm 5% (700 mg) Transdermal Patch] 1 patch TP DAILY #7 adh..patch Forms: Return to Work
== END 2018-05-22 13:25 | disposition home or self-care (01) ==
LOC: ER 11:46
DX: M54.42 Lumbago with sciatica, left side (principal); F17.200 Nicotine dependence, unspecified, uncomplicated
CPT/HCPCS: 99283; 96372; J1885

== ENCOUNTER 2018-06-10 11:26 | Emergency (ER) | payer OTHER ==
[2018-06-10 11:32] VITALS: BP 132/76
[2018-06-10] MEDS ORDERED: PSEUDOEPHEDRINE HCL 30 MG TABLET PO ONE (11:42)
[2018-06-10] MEDS ORDERED: IBUPROFEN 800 MG TABLET PO ONE (11:42)
--- NOTE | 2018-06-10 11:43 | ER Document Report ---
HPI - HPI Patient complains to provider of: cough, sore throat Time Seen by Provider: 06/10/18 11:36 Onset: Other - 2 days Onset/Duration: Worse Quality of pain: Achy Pain Level: 4 Context: Patient presents complaining of cough congestion and fever. Patient states fever was yesterday. Patient states that cough is been for the past 2 days. Patient complains of chest discomfort only with coughing. Associated Symptoms: Chest pain - With coughing, Nonproductive cough, Fever, Sore throat. denies: Earache, Nausea Exacerbated by: Coughing Relieved by: Remaining still Similar symptoms previously: No Recently seen / treated by doctor: No - ROS ROS below otherwise negative: Yes Systems Reviewed and Negative: Yes All other systems reviewed and negative - CONSTITUTIONAL Constitutional: REPORTS: Fever - YESTERDAY. DENIES: Chills - EENT EENT: REPORTS: Sore Throat. DENIES: Ear Pain, Eye problems - NEURO Neurology: REPORTS: Headache. DENIES: Weakness, Vision blurred, Dizzinesss / Vertigo - CARDIOVASCULAR Cardiovascular: REPORTS: Chest pain - RESPIRATORY Respiratory: REPORTS: Coughing. DENIES: Trouble Breathing - GASTROINTESTINAL Gastrointestinal: DENIES: Nausea, Patient vomiting - REPRODUCTIVE LMP: 06/02/18 Reproductive: DENIES: : - MUSCULOSKELETAL Musculoskeletal: DENIES: Extremity pain, Back Pain - DERM Skin Color: Normal Skin Problems: None Past Medical History - General Information source: Patient - Social History Smoking Status: Never Smoker Chew tobacco use (# tins/day): No Frequency of alcohol use: Occasional Drug Abuse: None Occupation: milk pickup driver Lives with: Family Family History: Reviewed & Not Pertinent Patient has suicidal ideation: No Patient has homicidal ideation: No Renal/ Medical History: Denies: Hx Peritoneal Dialysis Musculoskeletal Medical History: Reports Other - Chronic back pain Psychiatric Medical History: Reports: Hx Anxiety, Hx Depression - anxiety Past Surgical History: Reports: Hx Abdominal Surgery - exploratory laparoscopy, Hx Appendectomy, Hx Tonsillectomy - Immunizations Hx Diphtheria, Pertussis, Tetanus Vaccination: Yes Vertical Provider Document - CONSTITUTIONAL Agree With Documented VS: Yes Exam Limitations: No Limitations General Appearance: WD/WN, No Apparent Distress - INFECTION CONTROL TRAVEL OUTSIDE OF THE [place] IN LAST 30 DAYS: No - HEENT HEENT: Atraumatic, Normocephalic, Pharyngeal Tenderness, Pharyngeal Erythema. negative: Pharyngeal Exudate, Tympanic Membrane Red, Tympanic Membrane Bulging Notes: clear rhinorrhea - NECK Neck: Normal Inspection - RESPIRATORY Respiratory: Breath Sounds Normal, No Respiratory Distress. negative: Chest Non-Tender - chest tenderness with cough only - CARDIOVASCULAR Cardiovascular: Regular Rate, Regular Rhythm, No Murmur. negative: Tachycardia - BACK Back: Normal Inspection - MUSCULOSKELETAL/EXTREMETIES Musculoskeletal/Extremeties: MAEW, FROM - NEURO Level of Consciousness: Awake, Alert, Appropriate Motor/Sensory: No Motor Deficit - DERM Integumentary: Warm, Dry, No Rash Course - Re-evaluation Re-evalutation: 06/10/18 12:43 Patient's respirations even unlabored, patient nontoxic in appearance. No concern for pneumonia on x-ray. The patient has atypical chest pain as the patient's chest pain is not suggestive of pulmonary embolus, cardiac ischemia, aortic dissection, or other serious etiology. Given the extremely low risk of these diagnoses for the test in evaluation for these possibilities does not appear to be indicated at this time. Patient has been instructed to return if the symptoms worsen or change in any way. Patient PERC negative. - Vital Signs Vital signs: Temp Pulse Resp BP Pulse Ox 98 F 92 18 132/76 H 99 06/10/18 11:31 06/10/18 11:31 06/10/18 11:31 06/10/18 11:31 06/10/18 11:31 - Laboratory Laboratory results interpreted by me: 06/10/18 12:42 Labs- Entire Visit 06/10/18 11:40 Group A Strep Rapid NEGATIVE - Diagnostic Test Radiology reviewed: Image reviewed, Reports reviewed Discharge - Discharge Clinical Impression: Sore throat Upper respiratory infection Qualifiers: URI type: unspecified URI Qualified Code(s): J06.9 - Acute upper respiratory infection, unspecified Condition: Stable Disposition: HOME, SELF-CARE Instructions: Sore Throat ([facility]), Upper Respiratory Illness ([facility]) Additional Instructions: Return immediately for any new or worsening symptoms Followup with your primary care provider, call tomorrow to make a followup appointment Throat culture is pending, we will call if you need any different treatment Prescriptions: Benzonatate [Tessalon Perle 100 mg Capsule] 100 mg PO Q8HP PRN #20 cap PRN Reason: Guaifenesin/Pseudoephedrne HCl [Mucinex D ER 1,200-120 mg Tab] 1 each PO Q12 PRN #12 tab.er.12h PRN Reason: Naproxen [Naprosyn 250 Nmg Tablet] 1 tab PO BID #14 tablet Forms: Return to Work Referrals: [facility] [Primary [facility]] - Follow up as needed
--- NOTE | 2018-06-10 12:04 | RADIOLOGY REPORT (SQ) ---
EXAM DESCRIPTION: CHEST 2 VIEWS COMPLETED DATE/TIME: 06/10/2018 11:56 am REASON FOR STUDY: cough, cp COMPARISON: None. EXAM PARAMETERS: NUMBER OF VIEWS: two views TECHNIQUE: Digital Frontal and Lateral radiographic views of the chest acquired. RADIATION DOSE: NA LIMITATIONS: none FINDINGS: LUNGS AND PLEURA: No opacities, masses or pneumothorax. No pleural effusion. MEDIASTINUM AND HILAR STRUCTURES: No masses or contour abnormalities. HEART AND VASCULAR STRUCTURES: Heart normal size. No evidence for failure. BONES: No acute findings. HARDWARE: None in the chest. OTHER: No other significant finding. IMPRESSION: No acute abnormality of the lungs. No focal airspace opacity. TECHNICAL DOCUMENTATION: JOB ID: [id number] [employer]- All Rights Reserved Reading location - IP/workstation name: [email or web address]
== END 2018-06-10 13:09 | disposition home or self-care (01) ==
LOC: ER 11:26
DX: J06.9 Acute upper respiratory infection, unspecified (principal); J02.9 Acute pharyngitis, unspecified; R05 Cough; R07.89 Other chest pain; R51 Headache; J34.89 Other specified disorders of nose and nasal sinuses
CPT/HCPCS: 71046; 87070; 87880; 99283